=== PATIENT | female | born 1990 | race Caucasian/White ===

== ENCOUNTER 2022-02-14 14:31 | Day surgery (SDC) | payer OTHER, MEDICAID, SELFPAY ==
[2022-02-14] VITALS (8 sets, daily range): BP systolic 109–123; BP diastolic 66–78; PULSE 57–86; RESP 13–21; TEMP 35.9–36.6; O2SAT 98–100; BMI 27.1
--- NOTE | 2022-02-14 | PATH_ITS ---
[facility] Accession Number: [id number] No. of containers..01 Tissue . 01 Material submitted: . product of conception - PRODUCTS OF CONCEPTION . 02 Diagnosis: Products of Conception: Products of conception identified. Ploidy studies pending to characterize for a partial mole; results will be reported as an addendum. MRV 02/18/2022 1702 Local . 02 Electronically signed: . Hermila Valencia MD, Pathologist NPI- [id number] . 01 Gross description: . The specimen is received in formalin, labeled products of conception, and consists of an aggregate of hemorrhagic material measuring 9.8 x 6.5 x 2.6 cm in aggregate. Possible villous tissue is identified. No parts are seen. The specimen is representatively submitted as follows: . A1: Reps of possible villi. A2: Reps of remaining specimen. ([id number]) /[facility] 02/15/2022 1813 Local . 02 Microscopic: . An immunohistochemistry stain is performed to further evaluate the cells of interest. The control stains show appropriate reactivity. . RESULTS: P57: Positive; ploidy studies requested to rule out partial mole. . . * This test was developed and its performance characteristics determined by [facility]. It has not been cleared or approved by the U.S. Food and Drug Administration. The FDA has determined that such clearance or approval is not necessary. This test is used for clinical purposes. It should not be regarded as investigational or for research . 02 Pathologist provided ICD-10: O02.1 . 02 CPT . 061533, [id number] Specimen Comment: A courtesy copy of this report has been sent to [phone] Performed at: 01 [facility] [address] [place] [address], [place], [place] [id number] MD Valdemar Rivera MD Phone: [phone] Performed at: 02 [facility] [address] [place] [id number] MD Yesi Schrader MD Phone: [phone]
[2022-02-14 14:27] LABS: COVID19 -Nasal RAPID Negative (Negative)
[2022-02-14] MEDS: DOXYCYCLINE HYCLATE 100 MG TABLET 200 MG PO (15:07)
--- NOTE | 2022-02-14 15:28 | SUR.OPER ---
Lithotomy on padded OR bed, head on pillow, arms secured on padded arm boards at <90 degrees abduction. Legs secured in padded yellow fins stirrups.
[2022-02-14] MEDS: LACTATED RINGERS 1,000 ML 100 ML IV (15:30)
--- NOTE | 2022-02-14 15:35 | SUR.PREOP ---
02/14/22 1530-lab called for third time to come draw stat labs. States will be here as soon as they can.
[2022-02-14 16:02] LABS: Add Manual Diff / Slide Review NO; Basophils Absolute Auto 100 /uL (0-100); Basophils Percent Auto 0.7 % (0-2); Eosinophils Absolute Auto 200 /uL (0-450); Eosinophils Percent Auto 2.3 % (2-4); Hematocrit 37.5 % (36-46); Hemoglobin 13.1 g/dL (12.0-16.0); Lymphocytes Absolute Auto 1600 /uL (1100-4500); Mean Corpuscular HGB Conc 34.9 % (30-36); Mean Corpuscular Hemoglobin 31.7 PG (26-34); Monocytes Absolute Auto 500 /uL (0-900); Monocytes Percent Auto 5.9 % (3-14); Neutrophils Absolute Auto 5900 /uL (1500-7000); Neutrophils Percent Auto 72.1 % (50-75); Platelet Count 198 X10^3/uL (150-400); Red Blood Cell Count 4.12 X10^6/uL (4.0-5.2); White Blood Cell Count 8.2 X10^3/uL (4.5-11.0)
[2022-02-14] MEDS: METHYLERGONOVINE 0.2 MG/ML VIAL IM (16:13)
--- NOTE | 2022-02-14 16:25 | PM.GYNOP.1 ---
Operative Date/Time/Diagnoses Date of procedure: 02/14/22 Time of procedure: 15:30 Pre-op diagnosis: missed miscarriage Post-op diagnosis: same Procedure & Clinicians Procedure: Procedures Operation Date: 02/14/22 15:30 Actual Procedure Side Surgeon shai arvizu D&C Tara Whatley MD Indications: missed 10 weeks miscarriage s/p failed medical management Surgeon: Tara Whatley Anesthesia Type: General Operative Notes Findings: Normal vulva, vagina and cervix. Midline uterus approximately 11 weeks on bimanual exam. Specimen(s): products of conception Estimated blood loss (mL): 100 Procedure in detail: After informed consent was obtained, the patient was taken to the operating room. IV sedation was obtained, and she was prepped and draped in the dorsal lithotomy position in the usual sterile fashion. The bladder was emptied via straight catheterization, and she had received 200mg of PO doxycycline prior to the case. A sterile speculum was placed into the vagina and the cervix visualized. The anterior lip of the cervix was grasped with a single toothed tenaculum. Hegar dilators were used to dilate the cervix to 10mm, with only minimal pressure necessary. A rigid 10cm suction cannula was advanced through the cervix with only gentle pressure necessary and advanced to the fundus by feel, and suction applied. Several passes of the cannula were required to empty the uterus of products of conception, and the uterus was felt to be flor appropriately. A gentle curettage was performed with a sharp curette, followed by another pass with suction. This procedure was repeated until a gritty texture was noted and no POCs were removed. Given the duration of the patient's missed miscarriage and the soft fundal texture on bimanual exam along with bleeding during the case, the patient was administered one dose of methergine during the case. Bleeding after the last pass with the suction curette was minimal, and the single toothed tenaculum was removed with spontaneous hemostasis noted. The speculum was removed. The patient tolerated the procedure well, and was taken to the PACU in stable condition. IVF: 500ccs LR EBL 100ccs Complications: none Post-operative Condition: stable Disposition: PACU Plan for aftercare: Routine postop care
== END 2022-02-14 17:30 | disposition home or self-care (01) ==
PROVIDERS: Referring Provider Obstetrics & Gynecology; Visit Provider Obstetrics & Gynecology
PROC: (CPT 58120; principal; 2022-02-14 15:30)
DX: Z3A.10 10 weeks gestation of pregnancy (principal); O02.1 Missed abortion; Z20.822 Contact with and (suspected) exposure to COVID-19
CPT/HCPCS: 59812; 36415; 82962; 85025; 86850; 86900; 86901; 87635; J1100; J1885; J2210; J2250; J2405; J2704; J3010

== ENCOUNTER → 2022-03-09 14:04 | Outpatient (CLI) | payer OTHER, MEDICAID, SELFPAY ==
[2022-03-09 16:06] LABS: HCG Quantitative /Beta subunit 57.6 mIU/mL
== END ==
PROVIDERS: Referring Provider Obstetrics & Gynecology; Visit Provider Obstetrics & Gynecology
DX: O08.89 Other complications following an ectopic and molar pregnancy (principal)
CPT/HCPCS: 36415; 84702

== ENCOUNTER → 2022-03-16 12:51 | Outpatient (CLI) | payer OTHER, MEDICAID, SELFPAY ==
[2022-03-16 14:30] LABS: HCG Quantitative /Beta subunit 31.8 mIU/mL
== END ==
PROVIDERS: Referring Provider Obstetrics & Gynecology; Visit Provider Obstetrics & Gynecology
DX: O08.89 Other complications following an ectopic and molar pregnancy (principal)
CPT/HCPCS: 36415; 84702

== ENCOUNTER → 2022-03-21 17:15 | Outpatient (CLI) | payer OTHER, MEDICAID, SELFPAY ==
[2022-03-21 19:07] LABS: HCG Quantitative /Beta subunit 20.3 mIU/mL
== END ==
PROVIDERS: Referring Provider Obstetrics & Gynecology; Visit Provider Obstetrics & Gynecology
DX: O08.89 Other complications following an ectopic and molar pregnancy (principal)
CPT/HCPCS: 36415; 84702

== ENCOUNTER → 2022-03-30 10:37 | Outpatient (CLI) | payer OTHER, MEDICAID, SELFPAY ==
[2022-03-30 12:05] LABS: HCG Quantitative /Beta subunit 15.1 mIU/mL
== END ==
PROVIDERS: Referring Provider Obstetrics & Gynecology; Visit Provider Obstetrics & Gynecology
DX: O08.89 Other complications following an ectopic and molar pregnancy (principal)
CPT/HCPCS: 84702

== ENCOUNTER → 2022-04-06 11:43 | Outpatient (CLI) | payer OTHER, MEDICAID, SELFPAY ==
[2022-04-06 13:33] LABS: HCG Quantitative /Beta subunit 10.9 mIU/mL
== END ==
PROVIDERS: Referring Provider Obstetrics & Gynecology; Visit Provider Obstetrics & Gynecology
DX: O08.89 Other complications following an ectopic and molar pregnancy (principal); O02.1 Missed abortion
CPT/HCPCS: 36415; 84702

== ENCOUNTER → 2022-04-13 11:53 | Outpatient (CLI) | payer OTHER, MEDICAID, SELFPAY ==
[2022-04-13 13:36] LABS: HCG Quantitative /Beta subunit 7.6 mIU/mL
== END ==
PROVIDERS: Referring Provider Obstetrics & Gynecology; Visit Provider Obstetrics & Gynecology
DX: O08.89 Other complications following an ectopic and molar pregnancy (principal)
CPT/HCPCS: 36415; 84702

== ENCOUNTER → 2022-04-20 10:40 | Outpatient (CLI) | payer OTHER, MEDICAID, SELFPAY ==
[2022-04-20 11:54] LABS: HCG Quantitative /Beta subunit 6.8 mIU/mL
== END ==
PROVIDERS: Referring Provider Obstetrics & Gynecology; Visit Provider Obstetrics & Gynecology
DX: O08.89 Other complications following an ectopic and molar pregnancy (principal)
CPT/HCPCS: 36415; 84702

== ENCOUNTER → 2022-05-04 12:07 | Outpatient (CLI) | payer OTHER, MEDICAID, SELFPAY ==
[2022-05-04 14:11] LABS: HCG Quantitative /Beta subunit 2.6 mIU/mL
== END ==
PROVIDERS: Referring Provider Obstetrics & Gynecology; Visit Provider Obstetrics & Gynecology
DX: O08.89 Other complications following an ectopic and molar pregnancy (principal)
CPT/HCPCS: 36415; 84702

== ENCOUNTER → 2022-06-23 12:51 | Outpatient (CLI) | payer OTHER, MEDICAID, SELFPAY ==
[2022-06-23 14:55] LABS: HCG Quantitative /Beta subunit < 2.4 mIU/mL
== END ==
PROVIDERS: Referring Provider Obstetrics & Gynecology; Visit Provider Obstetrics & Gynecology
DX: O08.89 Other complications following an ectopic and molar pregnancy (principal); Z3A.00 Weeks of gestation of pregnancy not specified
CPT/HCPCS: 36415; 84702